=== PATIENT | female | born 1975 | race Caucasian/White ===

== ENCOUNTER 2022-10-22 16:34 | Emergency (ER) | payer MEDICAID ==
[~2022-10-22] VITALS: Ht 167.6 cm; Wt 45.4 kg
--- NOTE | 2022-10-22 17:07 | NUR ---
PT SEEN AND EVALUATED BY DR HARRY. TO RADIOLOGY FOR CT SCAN.
[2022-10-22] MEDS ORDERED: NAPR-1009 PO (18:04)
[2022-10-22] MEDS ORDERED: CYCL10TA9 PO (18:04)
[2022-10-22 18:05] VITALS: BP 110/68
--- NOTE | 2022-10-22 18:07 | NUR ---
Patient presented to the ER with complaints of pain in spine, neck, and lower back. Physician seen, imaging completed and prescriptions given for home. Patient departed ambulatory.
== END 2022-10-22 18:15 | disposition home or self-care (01) ==
LOC: ER 16:34
DX: S09.90XA Unspecified injury of head, initial encounter (principal); S13.9XXA Sprain of joints and ligaments of unspecified parts of neck, initial encounter; S39.012A Strain of muscle, fascia and tendon of lower back, initial encounter; V48.5XXA Car driver injured in noncollision transport accident in traffic accident, initial encounter; Y92.410 Unspecified street and highway as the place of occurrence of the external cause; R10.32 Left lower quadrant pain
CPT/HCPCS: 70450; 72125; 72131; 72192; A4663